=== PATIENT | female | born 1955 | race Caucasian/White ===

== ENCOUNTER → 2019-04-04 09:34 | Outpatient (CLI) | payer OTHER, SELFPAY ==
--- NOTE | 2019-04-04 09:43 | DI.US.S_ITS ---
PROCEDURE: US ABD AORTA ANEURYSM SCREEN INDICATIONS: ENCOUNTER FOR SCREENING FOR CARDIOVASCULAR DISORDERS TECHNIQUE: Real time scanning was performed of the aorta and iliac arteries, with image documentation. COMPARISON: None. FINDINGS: Aorta: Proximal aortic diameter measures 2.5 cm. Mid-aorta measures 2.0 cm. Distal aortic diameter is 1.7 cm. Iliac arteries: Right common iliac artery measures 1.2 cm. Left common iliac artery measures 1.3 cm. IMPRESSION: No abdominal aortic or proximal common iliac artery aneurysm. Dictated by: Adrian HAYWOOD Interpreted: Dee Dee Cisneros MD on 04/04/2019 at 12:12 Approved by: Dee Dee Cisneros M.D. on 04/04/2019 at 14:10
--- NOTE | 2019-04-04 09:44 | DI.MG.S_ITS ---
BILATERAL DIGITAL SCREENING MAMMOGRAM 3D/2D WITH CAD: 04/04/2019 CLINICAL: Routine screening. Comparison is made to exams dated: 05/26/2017 mammogram, 06/02/2014 mammogram, and 02/22/2012 mammogram - [facility]. The tissue of both breasts is heterogeneously dense. This may lower the sensitivity of mammography. Current study was also evaluated with a Computer Aided Detection (CAD) system. There is a benign biopsy clip in the right breast. No significant masses, calcifications, or other findings are seen in either breast. There has been no significant interval change. IMPRESSION: NEGATIVE There is no mammographic evidence of malignancy. A 1 year screening mammogram is recommended. This exam was interpreted at Station ID: [id number]. NOTE: For mammograms, a report in lay terms will be sent to the patient. Approximately 15% of breast malignancies will not be visualized mammographically. In the management of a palpable breast mass, a negative mammogram must not discourage biopsy of a clinically suspicious lesion. Electronically Signed By: David martinez/marya:04/05/2019 17:33:05 letter sent: Normal Exam ACR BI-RADS Category 1: Negative 3341F
== END ==
PROVIDERS: PCP Nurse Practitioner Family; Visit Provider Nurse Practitioner Family
DX: Z12.31 Encounter for screening mammogram for malignant neoplasm of breast (principal); Z13.6 Encounter for screening for cardiovascular disorders
CPT/HCPCS: 76706; 77063; 77067

== ENCOUNTER → 2019-09-06 10:16 | Outpatient (CLI) | payer OTHER, SELFPAY ==
--- NOTE | 2019-09-06 10:24 | DI.CT.S_ITS ---
PROCEDURE: CT ABDOMEN PELVIS WO CON INDICATIONS: Right lower quadrant pain TECHNIQUE: After the administration of oral contrast, 5 mm thick sections acquired from the diaphragms to the symphysis. 5 mm coronal and sagittal reformats were performed. For radiation dose reduction, the following was used: automated exposure control, adjustment of mA and/or kV according to patient size. COMPARISON: [facility], CT, ABDOMEN/PELVIS WITH CONTRAST, 08/29/2008, 14:25. FINDINGS: Image quality: Excellent. ABDOMEN: Lung bases: Lung bases are clear. Heart size is normal. Solid organs: Hypodense lesion measuring 1.5 cm on image 13 series 2 is technically indeterminate, although grossly unchanged since 2007 Gallbladder surgically absent. Pancreas is normal in size. Spleen is normal in size. No adrenal nodules. Both kidneys are normal in size, without hydronephrosis or nephrolithiasis. Peritoneum and bowel: Bowel loops demonstrate normal wall thickness and caliber. No free fluid or air. Appendix is not clearly identified however no suspicious pericecal inflammatory changes are seen. Nodes and vessels: No retroperitoneal or mesenteric adenopathy by size criteria. Aorta and inferior vena cava are normal in size. Miscellaneous: No ventral hernias. PELVIS: Genitourinary: Bladder wall thickness is normal. Miscellaneous: No inguinal hernias or adenopathy. Bones: No suspicious bony lesions. No vertebral body compression fractures. Unchanged 1 cm focus of sclerosis in the L3 vertebral body IMPRESSION: Appendix is not clearly identified however no suspicious pericecal inflammatory changes are seen. Status post cholecystectomy No specific visualized etiology for right lower quadrant pain. Dictated by: Tha Villafuerte M.D. on 09/06/2019 at 13:15 Approved by: Tha Villafuerte M.D. on 09/06/2019 at 13:22
== END ==
PROVIDERS: PCP Nurse Practitioner Family; Visit Provider Nurse Practitioner Family
DX: R10.31 Right lower quadrant pain (principal); Z90.49 Acquired absence of other specified parts of digestive tract
CPT/HCPCS: 74176

== ENCOUNTER → 2020-10-12 11:38 | Outpatient (CLI) | payer OTHER, SELFPAY ==
--- NOTE | 2020-10-12 | DI.MG.S_ITS ---
BILATERAL DIGITAL SCREENING MAMMOGRAM 3D/2D WITH CAD: 10/12/2020 CLINICAL: Routine screening. Comparison is made to exams dated: 04/04/2019 mammogram and 05/26/2017 mammogram - [facility]. The tissue of both breasts is heterogeneously dense. This may lower the sensitivity of mammography. Current study was also evaluated with a Computer Aided Detection (CAD) system. There is a biopsy clip in the right breast. No significant masses, calcifications, or other findings are seen in either breast. There has been no significant interval change. IMPRESSION: NEGATIVE There is no mammographic evidence of malignancy. A 1 year screening mammogram is recommended. This exam was interpreted at Station ID: [id number]. NOTE: For mammograms, a report in lay terms will be sent to the patient. Approximately 15% of breast malignancies will not be visualized mammographically. In the management of a palpable breast mass, a negative mammogram must not discourage biopsy of a clinically suspicious lesion. Electronically Signed By: Sylvester pfeiffer/marya:10/12/2020 17:32:31 copy to: HUY BRANTLEY letter sent: Normal Exam ACR BI-RADS Category 1: Negative 3341F
== END ==
PROVIDERS: PCP Nurse Practitioner Family; Referring Provider Nurse Practitioner Family; Visit Provider Nurse Practitioner Family
DX: Z12.31 Encounter for screening mammogram for malignant neoplasm of breast (principal)
CPT/HCPCS: 77063; 77067

== ENCOUNTER → 2023-07-22 14:05 | Outpatient (CLI) | payer MEDICARE, OTHER, SELFPAY ==
--- NOTE | 2023-07-22 14:14 | DI.MRI.S_ITS ---
PROCEDURE: MR KNEE RT WO CON INDICATIONS: Unspecified internal derangement of right knee TECHNIQUE: Noncontrast sagittal PD fast spin echo and T2 fast spin echo with fat saturation, sagittal 3-D FLASH with fat saturation; coronal T1 spin echo and PD fast spin echo with fat saturation, and axial PD fast spin echo with fat saturation through the knee. COMPARISON: [facility] [place], CR, XR KNEE ARTHRITIC SERIES BI, 12/20/2022, 9:52. FINDINGS: Image quality: Excellent. Anterior Cruciate Ligament: Intact. Posterior Cruciate Ligament: Intact. Medial Collateral Ligament: Intact. Lateral Collateral Ligament: Intact. Medial Meniscus: There is horizontal tearing of the posterior horn of the medial meniscus extending to the free edge margin and likely extending to the tibial articular surface at the meniscal body. Lateral Meniscus: There is complex tearing of the body lateral meniscus with a horizontal oblique component and shallow free edge radial component. Medial and Lateral Tendons: The semimembranosus tendon insertions and meniscocapsular junction appear intact. Visualized portions of the pes anserinus tendons appear normal. No abnormal bursal fluid. The long and short heads of the biceps femoris tendon appear intact. The popliteus tendon appears intact. No signs of posterolateral corner injury. Iliotibial band appears normal. Anterior Structures: The quadriceps and patellar tendons appear intact. Minimal lateral patellar subluxation. No femoral trochlear dysplasia or ventral trochlear prominence. Mild edema is seen at the superolateral aspect of the infrapatellar fat pad, which can be seen in the setting of lateral femoral condyle-patellar tendon friction syndrome. Bones: No acute trabecular bone injury or fracture. Medial Femorotibial Cartilage: There is high-grade versus full-thickness cartilage loss in the weight-bearing portion of the medial femorotibial compartment with subchondral cystic changes and edema and marginal osteophyte formation. Lateral Femorotibial Cartilage: Focal grade 3 chondromalacia is seen in the central weight-bearing portion of the lateral femorotibial compartment. Small marginal osteophytes are present. Patellofemoral Cartilage: Full-thickness cartilage loss is seen at the lateral patellar facet and adjacent lateral femoral trochlea with mild subchondral edema. Grade 3 chondromalacia is seen at the medial femoral trochlea and trochlear groove and there is deep cartilage fissuring in the medial patellar facet. Soft Tissues: A small joint effusion is present. Small medial popliteal cyst. The musculature surrounding the knee is normal in bulk. IMPRESSION: 1. 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 Grade 3-4 chondromalacia is seen in the medial compartment and there is focal grade 3 chondromalacia in the lateral compartment. Tricompartmental marginal osteophytes are present. 2. Complex tearing of the lateral meniscus with a horizontal component at the meniscal body and superimposed shallow free edge radial component. 3. Horizontal tearing of the medial meniscus extending to the free edge margin at the posterior horn and likely the tibial articular surface at the meniscal body. 4. Cruciate and collateral ligaments are intact. No acute trabecular bone injury. 5. Mild edema is seen at the superolateral aspect of the infrapatellar fat pad, which can be seen in the setting of lateral femoral condyle-patellar tendon friction syndrome. 6. Small joint effusion. Small medial popliteal cyst. Approved by: Sylvester Pat M.D. on 07/24/2023 at 10:49
== END ==
PROVIDERS: PCP Nurse Practitioner Family; Referring Provider Orthopaedic Surgery Foot and Ankle Surgery; Visit Provider Orthopaedic Surgery Foot and Ankle Surgery
DX: M23.91 Unspecified internal derangement of right knee (principal); M17.0 Bilateral primary osteoarthritis of knee; M22.41 Chondromalacia patellae, right knee; M25.761 Osteophyte, right knee; S83.281A Other tear of lateral meniscus, current injury, right knee, initial encounter; S83.241A Other tear of medial meniscus, current injury, right knee, initial encounter; M25.461 Effusion, right knee; M71.21 Synovial cyst of popliteal space [Baker], right knee
CPT/HCPCS: 73721

== ENCOUNTER → 2023-08-16 14:32 | Outpatient (CLI) | payer MEDICARE, OTHER, SELFPAY ==
--- NOTE | 2023-08-16 | DI.MG.S_ITS ---
BILATERAL DIGITAL SCREENING MAMMOGRAM 3D/2D WITH CAD: 08/16/2023 CLINICAL: Routine screening. Comparison is made to exams dated: 10/12/2020 mammogram, 04/04/2019 mammogram, 05/26/2017 mammogram, and 02/29/2012 mammogram - [facility]. Both breasts are heterogeneously dense, which may obscure small masses (category c / 51-75% glandular tissue). Current study was also evaluated with a Computer Aided Detection (CAD) system. There is a biopsy clip in the right breast. No significant masses, calcifications, or other findings are seen in either breast. There has been no significant interval change. IMPRESSION: NEGATIVE There is no mammographic evidence of malignancy. A 1 year screening mammogram is recommended. Based on the Tyrer Cuzick model (a risk assessment model) the patient's lifetime risk is 7.0% and her 10 year risk is 4.4%. According to the ACR, ACS, and NCCN guidelines, an annual breast MRI exam along with mammogram is recommended if the patient's lifetime risk is 20% or greater. This exam was interpreted at Station ID: [id number]. NOTE: For mammograms, a report in lay terms will be sent to the patient. Approximately 15% of breast malignancies will not be visualized mammographically. In the management of a palpable breast mass, a negative mammogram must not discourage biopsy of a clinically suspicious lesion. Electronically Signed By: Tommy patel/marya:08/17/2023 13:04:52 copy to: HUY BRANTLEY letter sent: Normal Exam ACR BI-RADS Category 1: Negative 3341F
== END ==
PROVIDERS: PCP Family Medicine; Referring Provider Family Medicine; Visit Provider Family Medicine
DX: Z12.31 Encounter for screening mammogram for malignant neoplasm of breast (principal)
CPT/HCPCS: 77063; 77067

== ENCOUNTER 2024-06-02 12:05 | Emergency (ER) | payer MEDICARE, OTHER, SELFPAY ==
[2024-06-02 12:29] VITALS: BP 119/72; PULSE 83; RESP 16; TEMP 36.8; O2SAT 96; BMI 27.2
[2024-06-02 14:08] LABS: Adenovirus Not Detected (Not Detect); B. parapertussis Not Detected (Not Detecte); Bordetella pertussis Not Detected (Not Detect); Chlamydophila pneumoniae Not Detected (Not Detect); Coronavirus 229E Not Detected (Not Detect); Coronavirus HKU1 Not Detected (Not Detect); Coronavirus NL 63 Not Detected (Not Detect); Coronavirus OC43 Not Detected (Not Detect); Human Metapneumovirus Not Detected (Not Detect); Human Rhinovirus/Enterovirus Not Detected (Not Detect); Influenza A Not Detected (Not Detect); Influenza B Not Detected (Not Detect); Mycoplasma pneumoniae Not Detected (Not Detect); Parainfluenza Virus 1 Not Detected (Not Detect); Parainfluenza Virus 2 Not Detected (Not Detect); Parainfluenza Virus 3 Not Detected (Not Detect); Parainfluenza Virus 4 Not Detected (Not Detect); Respiratory Syncytial Virus Not Detected (Not Detect); SARS- CoV-2 Not Detected (Not Detecte)
[2024-06-02 14:38] VITALS: PULSE 76; O2SAT 97
[2024-06-02 14:39] VITALS: BP 114/61; PULSE 78; O2SAT 97
[2024-06-02 15:00] VITALS: BP 118/67; PULSE 73; O2SAT 94
[2024-06-02 15:30] VITALS: BP 124/68; PULSE 78; O2SAT 95
--- NOTE | 2024-06-02 15:48 | PC.NURSE ---
Pt walked out of room tearful and upset asking ED pediatric social worker when she is going to be seen by the Doctor, RN explained to pt she will be seen in the order of acuity of the emergency department. Pt then walked back to her room upset, slamming her room door shut. RN followed pt to room and asked her to please not slam the door. Pt agreeable. Will monitor pt for escalation in behavior.
--- NOTE | 2024-06-02 15:55 | ED_ITS ---
HPI - Ear Problem General Chief complaint: Ear Stated complaint: L Eye Issue, Poss R Ear Perforation Time Seen by Provider: 06/02/24 15:50 Source: patient Mode of arrival: Ambulatory History of Present Illness HPI Narrative: 68-year-old female complains of right ear pain, now day 2 of amoxicillin oral antibiotic, with discharge from the left eye, concerned about left eye infection, she wiped it clean with a wet cloth, now seems improved, is interested in some kind of topical antibiotic for her left eye. No injury recalled. No change in vision. She has been taking her amoxicillin doses. She feels that she has had some leakage/drainage from the right ear. She denies instrumentation of her ears. Related Data Previous Rx's Medication Instructions Recorded sumatriptan succinate 100 mg 100 mg PO PRN #9 tabs 05/09/16 tablet (Imitrex) ezetimibe 10 mg tablet (Zetia) 0 PO Q DAY #90 tabs 05/01/17 pravastatin 40 mg tablet 40 mg PO HS #90 tabs 05/01/17 (Pravachol) erythromycin 5 mg/gram (0.5 %) eye 1 applic EYE-LEFT TID eye 06/02/24 ointment infection 7 days #3.5 grams Allergies Allergy/AdvReac Type Severity Reaction Status Date / Time naproxen [NAPROXEN] AdvReac Mild Dizziness Unverified 01/24/18 13:07 hydrocodone [HYDROCODONE] AdvReac Unknown N&V, Unverified 01/24/18 13:07 constipation Review of Systems Review of Systems Narrative: see HPI Patient History Social History Smoking Status: Never smoker Smoking Status: Never smoker alcohol intake frequency: holidays/special occasions only Substance Use Type: does not use Exam Narrative Exam Narrative: GENERAL: Well-developed patient, in mild distress. HEAD: Atraumatic. Normocephalic. EYES: Pupils equal round and reactive. Extraocular motions intact. No scleral icterus. No injection or drainage. ENT: Nose without bleeding, purulent drainage. Throat without erythema, tonsillar hypertrophy or exudate. Airway patent. Right symptomatic TM does have some inferior bulge and dullness, and loss of landmarks, consistent with recent reported middle ear infection. The ear canal does not appear to be narrowed, there is no purulence or foreign body noted in the ear canal. She does not seem to have scleral injection nor any discharge to either eye NECK: Trachea midline. Non tender CARDIOVASCULAR: Regular rate and rhythm without murmurs, gallops, or rubs. RESPIRATORY: Clear to auscultation. Breath sounds equal bilaterally. No wheezes, rales, or rhonchi. GASTROINTESTINAL: Abdomen soft, non-tender, nondistended. EXTREMITIES: No edema or joint tenderness. BACK: Nontender without deformity or crepitance. No flank tenderness. NEURO: AOx3. SKIN: No rash or erythema of visible areas Initial Vital Signs Initial Vital Signs: Vital Signs Temperature 98.3 F 06/02/24 12:29 Pulse Rate 83 06/02/24 12:29 Respiratory Rate 16 06/02/24 12:29 Blood Pressure 119/72 06/02/24 12:29 Pulse Oximetry 96 06/02/24 12:29 Oxygen Delivery Method Room Air 06/02/24 12:29 Course Orders Ordered: ED Orders 06/02/24 12:40 Respiratory Panel (Film Array) Stat Vital Signs Vital signs: Vital Signs - 8 hr 06/02/24 12:29 06/02/24 14:38 06/02/24 14:39 Temperature 98.3 F Pulse Rate 83 76 78 Respiratory Rate 16 Blood Pressure 119/72 Pulse Oximetry 96 97 97 Oxygen Delivery Method Room Air 06/02/24 14:39 06/02/24 15:00 06/02/24 15:00 Temperature Pulse Rate 73 Respiratory Rate Blood Pressure 114/61 118/67 Pulse Oximetry 94 Oxygen Delivery Method 06/02/24 15:30 06/02/24 15:30 Temperature Pulse Rate 78 Respiratory Rate Blood Pressure 124/68 Pulse Oximetry 95 Oxygen Delivery Method Medical Decision Making Lab Data Labs: Lab Results 06/02/24 Range/Units 12:40 Chlamy pneumoniae PCR Not detected (Not Detect) Adenovirus (PCR) Not detected (Not Detect) B.parapertussis DNA PCR Not detected (Not Detecte) Coronavirus OC43 (PCR) Not detected (Not Detect) Coronavirus HKU1 (PCR) Not detected (Not Detect) Coronavirus 229E (PCR) Not detected (Not Detect) SARS-CoV-2 (PCR) Not detected (Not Detecte) Coronavirus NL63 (PCR) Not detected (Not Detect) Human Metapneumovir PCR Not detected (Not Detect) Influenza Type A (PCR) Not detected (Not Detect) Influenza Type B (PCR) Not detected (Not Detect) M. pneumoniae (PCR) Not detected (Not Detect) Parainfluenza 1 (PCR) Not detected (Not Detect) Parainfluenza 2 (PCR) Not detected (Not Detect) Parainfluenza 3 (PCR) Not detected (Not Detect) Parainfluenza 4 (PCR) Not detected (Not Detect) RSV (PCR) Not detected (Not Detect) Entero/Rhino (PCR) Not detected (Not Detect) MDM Narrative Medical decision making narrative: Recent ear pain, day 2 of oral amoxicillin, with discharge complaints from left eye by report, not evident on exam, apparently she would just cleaned it. She is requesting antibiotics topically for the left eye, no allergies, we will send prescription for erythromycin antibiotic to her [place] pharmacy. She wants to leave now to catch [employer]. Consider refractory otitis media due to amoxicillin, however she is only on day 2, advised continued amoxicillin antibiotic coverage, if symptoms persist by day 4 or 5 a change in antibiotic might be reasonable, still little bit too early to do this. She seemed agreeable to this plan. We will send erythromycin ophthalmic antibiotic prescription to her [place] pharmacy. Discharge Plan Departure Patient Disposition: Home Clinical Impression: Otitis media, Conjunctivitis Activity Restrictions/Additional Instructions: Right-sided ear pain, day 2 of oral antibiotic amoxicillin, some drainage symptoms, however on exam there does seem to be middle ear infection like changes to the eardrum, does not appear to be perforated, there did not seem to be any debris or foreign body or fluid in the ear canal. It is a bit too early to consider changing antibiotics, continue same amoxicillin for now, if symptoms persisting and exam unchanged at day 4-5 then sometimes it change in antibiotic classes warranted. You had complaint of drainage from your left eye, but cleaned it prior to arrival. Unremarkable external eye exams. You wanted to have antibiotic ointment to use your left eye, no known drug allergies, erythromycin ointment electronically prescribed, sent to your [place] pharmacy to merchandise pickup/receiving associate tomorrow and open. Recheck your right ear if not improving in clinic in the next 2-3 days. Return earlier to this/nearest emergency department for any change worsening symptoms or any concerns prior Prescriptions: New erythromycin 5 mg/gram (0.5 %) ointment 1 applic EYE-LEFT TID 7 Days Qty: 3.5 0RF No Action sumatriptan succinate [Imitrex] 100 MG tablet 100 mg PO PRN Qty: 9 2RF pravastatin [Pravachol] 40 MG tablet 40 mg PO HS Qty: 90 0RF ezetimibe [Zetia] 10 MG tablet 0 PO Q DAY Qty: 90 1RF Referrals: Rachele Delgadillo MD [Primary Care Provider] - Stand Alone Forms: Patient Portal/API
--- NOTE | 2024-06-02 16:04 | PC.NURSE ---
natural gas technician states that the pt had removed her BP cuff and SpO2 when she entered the room. New vitals obtained.
== END 2024-06-02 16:05 | disposition home or self-care (01) ==
PROVIDERS: Emergency Provider Emergency Medicine; PCP Family Medicine
DX: H66.91 Otitis media, unspecified, right ear (principal); H10.9 Unspecified conjunctivitis
CPT/HCPCS: 87633; 99282

== ENCOUNTER → 2025-02-24 11:46 | Outpatient (CLI) | payer MEDICARE, OTHER, SELFPAY ==
--- NOTE | 2025-02-24 11:49 | DI.MG.S_ITS ---
MM screening mammo BI: 02/24/2025. BI-RADS: 2 CLINICAL: 69-year old female for bilateral screening mammogram. Tyrer-Cuzick lifetime risk of 5.7%. No personal or first-degree family history of breast cancer. PRIOR EXAMS 08/16/2023, 10/12/2020, 04/04/2019, 05/26/2017. MAMMOGRAPHY TECHNIQUE: 2D and 3D (tomosynthesis) digital mammographic views obtained, with additional images as needed for full coverage. Current study was also evaluated with a Computer Aided Detection (CAD) system. DENSITY C. The breasts are heterogeneously dense, which may obscure small masses. MAMMOGRAPHY FINDINGS Right: Biopsy marker present on the right. Benign-appearing post-surgical changes noted on the right. There are no suspicious masses, calcifications, or other findings in the breast. Left: No suspicious mass, asymmetry, microcalcification, or other abnormality seen. IMPRESSION: Right * No evidence of malignancy with benign findings. Left * No evidence of malignancy. RECOMMENDATIONS Bilateral * Annual screening mammography. OVERALL ASSESSMENT CATEGORY BI-RADS-2: Benign. The [employer] recommends annual screening mammography beginning at age 40 for women with average risk of breast cancer. ELECTRONICALLY SIGNED: Tommy Teresa M.D. on 02/24/2025 at 03:45:28 PM PT Interpreting Station ID: [id number]
== END ==
LOC: MAMMO 11:47
PROVIDERS: PCP Family Medicine; Referring Provider Family Medicine; Visit Provider Family Medicine
DX: Z12.31 Encounter for screening mammogram for malignant neoplasm of breast (principal); R92.333 Mammographic heterogeneous density, bilateral breasts
CPT/HCPCS: 77063; 77067

== ENCOUNTER → 2025-07-14 08:01 | Outpatient (CLI) | payer MEDICARE, OTHER, SELFPAY ==
--- NOTE | 2025-07-14 08:04 | DI.US.S_ITS ---
PROCEDURE: US PELVIC COMPLETE INDICATIONS: PMB TECHNIQUE: Real-time scanning was performed of the pelvic organs, with image documentation. Additional endovaginal scanning was necessary due to incomplete visualization of the adnexal and endometrial structures by transabdominal scanning. COMPARISON: None. FINDINGS: Uterus: Uterus is anteverted and normal in size at 8.0 x 6.1 x 6.0 cm. The myometrium is heterogeneous. The endometrium is hypervascular and measures 15 mm combined thickness. Predominantly subserosal uterine fibroid is present at the posterior body measuring 2.7 x 2.9 x 3.2 cm. An additional hypoechoic intramural fibroid is present at the posterior uterine body/fundus measuring 1.1 x 0.8 cm. Ovaries: The right ovary measures is not visualized. The left ovary measures 1.9 x 2.6 x 1.1 cm. The ovaries have a normal sonographic appearance. There is a 1.1 cm cyst seen in the left ovary. No adnexal masses are seen. Other: No pathologic free abdominal or pelvic fluid. IMPRESSION: 1. Thickened, hypervascularendometrium measuring 15 mm which is abnormal in a post-menopausal patient. Recommend gynecologic consultation. 2. Uterine fibroids. We strive to produce accurate, complete, and clear reports of imaging services. To assist us in improving patient care, this report was composed using standard report templates and voice recognition software. Therefore, it may contain abnormal punctuation, insertions and/or omissions. Occasional wrong-word or sound-alike substitutions may occur. Though we review the report and make efforts to correct it, we do recommend that the report be read carefully in proper context to recognize any text inaccuracies. Dictated by: Edmundo Stein M.D. on 07/14/2025 at 17:05 Approved by: Edmundo Stein M.D. on 07/14/2025 at 17:15
== END ==
PROVIDERS: Visit Provider Nurse Practitioner
DX: N95.0 Postmenopausal bleeding (principal); D25.1 Intramural leiomyoma of uterus; D25.2 Subserosal leiomyoma of uterus; N83.202 Unspecified ovarian cyst, left side; R93.89 Abnormal findings on diagnostic imaging of other specified body structures
CPT/HCPCS: 76830; 76856

== ENCOUNTER 2025-09-11 07:28 | Emergency (ER) | payer MEDICARE, OTHER, SELFPAY ==
[2025-09-11] VITALS (11 sets, daily range): BP systolic 129–156; BP diastolic 71–78; PULSE 60–76; RESP 16–18; TEMP 36.7; O2SAT 93–97; BMI 26.8
--- NOTE | 2025-09-11 07:58 | DI.RAD.S_ITS ---
PROCEDURE: XR CHEST 1V INDICATIONS: chest pain TECHNIQUE: One view of the chest was acquired. COMPARISON: None. FINDINGS: Surgical changes and devices: None. Lungs and pleura: Lungs are clear. No pleural effusions or pneumothorax. Mediastinum: Mediastinal contours appear normal. Heart size is normal. Bones and chest wall: No suspicious bony lesions. Overlying soft tissues appear unremarkable. IMPRESSION: No acute cardiopulmonary abnormality is seen. Dictated by: Darian Gordillo M.D. on 09/11/2025 at 8:30 Approved by: Darian Gordillo M.D. on 09/11/2025 at 8:30
--- NOTE | 2025-09-11 08:04 | ED.SOB ---
HPI - SOB/Dyspnea General Chief Complaint: Shortness of Breath/Dyspnea Stated Complaint: SOB Time Seen by Provider: 09/11/25 07:48 Source: patient Mode of arrival: Ambulatory Limitations: no limitations History of Present Illness HPI Narrative: Patient is a 70-year-old female brought in by EMS for chest tightness, dyspnea, lightheadedness. Past medical history significant for hyperlipidemia (ezetimibe, pravastatin), hypertension (2.5mg lisinopril), and recent gynecological procedure 2 days ago (D&C). Patient states that she was in her usual state of health and had a D&C 2 days ago that was without complication and resulted in a polyp removal. She was hospitalized and discharged the following day and stated that she has been ambulatory since. She was in her usual state of health with history and stated upon waking up today she felt short of breath, and had associated lightheadedness, and anterior nonradiating chest tightness. She denies any diaphoresis, or nausea. No loss of consciousness or syncopal episodes. No fevers, chills, no history of hypercoagulability. Related Data Previous Rx's ?Medication ?Instructions ?Recorded sumatriptan succinate 100 mg 100 mg PO PRN #9 tabs 05/09/16 tablet (Imitrex) ezetimibe 10 mg tablet (Zetia) 0 PO Q DAY #90 tabs 05/01/17 pravastatin 40 mg tablet 40 mg PO HS #90 tabs 05/01/17 (Pravachol) Allergies Allergy/AdvReac Type Severity Reaction Status Date / Time naproxen (NAPROXEN) AdvReac Mild Dizziness Verified 09/11/25 07:50 hydrocodone (HYDROCODONE) AdvReac Unknown N&V, Verified 09/11/25 07:50 constipation Review of Systems Review of Systems Narrative: See HPI above. Patient History Social History Smoking Status: Never smoker Smoking Status: Never smoker alcohol intake frequency: holidays/special occasions only Exam Initial Vital Signs Initial Vital Signs: Vital Signs Temperature 98.1 F 09/11/25 07:50 Pulse Rate 64 09/11/25 07:50 Respiratory Rate 18 09/11/25 07:50 Blood Pressure 156/71 H 09/11/25 07:50 Pulse Oximetry 96 09/11/25 07:50 Oxygen Delivery Method Room Air 09/11/25 07:50 Scores HEART Score Heart Score history: Slightly Suspicious (Dyspnea, chest tightness, lightheadedness, no associated diaphoresis, nausea, vomiting.) Heart Score Age: > or = 65 years old (70 years old) Heart Score risk factors: 1-2 risk factors Wells' Criteria for PE Citation:: 1.5?points Low risk group: 1.3% chance of PE in an ED population. Another study assigned scores <= as ?PE Unlikely? and had a 3% incidence of PE. Course Course Course Narrative: 0810 reviewed EMR patient was previously on hormone replacement therapy however confirmed with patient was informed that she was on HRT 20 years ago and not currently on any hormone treatment. 0817 EKG with normal sinus rhythm, heart rate 59 AR 220 QRS 78 QTC 392 no axis deviation sinus bradycardia with first-degree block and low voltage criteria. Orders Ordered: ED Orders 09/11/25 07:58 CXR [XR chest 1V] Stat CBC Auto Diff [Complete Blood Count AUTO DIFF] Stat CMP [Comprehensive Metabolic Panel] Stat D Dimer Stat Troponin I Stat 09/11/25 08:03 EKG-12 Lead Stat Vital Signs Vital signs: Vital Signs - 8 hr 09/11/25 07:50 Temperature 98.1 F Pulse Rate 64 Respiratory Rate 18 Blood Pressure 156/71 H Pulse Oximetry 96 Oxygen Delivery Method Room Air MDM - SOB/Dyspnea Lab Data 09/11/25 08:10 09/11/25 08:10 Labs: Lab Results 09/11/25 Range/Units 08:10 WBC 8.8 (4.5-11.0) X10^3/uL RBC 4.27 (4.0-5.2) X10^6/uL Hgb 12.7 (12.0-16.0) g/dL Hct 37.9 (36-46) % MCV 88.7 (80-100) fL MCH 29.6 (26-34) PG MCHC 33.4 (30-36) % RDW 14.1 (11.6-14.8) % Plt Count 218 (150-400) X10^3/uL Neut % (Auto) 55.2 (50-75) % Lymph % (Auto) 36.5 (25-40) % [place] % (Auto) 6.1 (3-14) % Eos % (Auto) 1.7 L (2-4) % Baso % (Auto) 0.5 (0-2) % Neut # (Auto) 4800 (6794-4988) /uL Lymph # (Auto) 3200 (6976-4858) /uL [place] # (Auto) 500 (0-900) /uL Eos # (Auto) 100 (0-450) /uL Baso # (Auto) 0 (0-100) /uL Sodium 142 (137-145) mmol/L Potassium 4.6 (3.4-5.1) mmol/L Chloride 109 H (98-107) mmol/L Carbon Dioxide 25 (22-32) mmol/L BUN 19 H (7-17) mg/dL Creatinine 0.91 (0.52-1.04) mg/dL Estimated GFR > 60 (>60) mL/min BUN/Creatinine Ratio 20.9 (6-22) Glucose 92 (70-99) mg/dL Calcium 9.6 (8.4-10.2) mg/dL Total Bilirubin 0.2 (0.2-1.3) mg/dL AST 33 (14-36) IU/L ALT 33 (<35) IU/L Alkaline Phosphatase 70 (38-126) U/L Total Protein 7.1 (6.3-8.2) g/dL Albumin 4.5 (3.5-5.0) g/dL Globulin 2.6 (1.7-4.1) g/dL Albumin/Globulin Ratio 1.7 (1.0-2.8) Imaging Data Chest x-ray: My Impression: Clear lung jiménez with sharp borders around the heart and no evidence of pericardial effusion or blunting of the costophrenic angle. No evidence of pneumothorax or consolidation, bony structures appear normal. Radiologist's Impression: FINDINGS: Surgical changes and devices: None. Lungs and pleura: Lungs are clear. No pleural effusions or pneumothorax. Mediastinum: Mediastinal contours appear normal. Heart size is normal. Bones and chest wall: No suspicious bony lesions. Overlying soft tissues appear unremarkable. IMPRESSION: No acute cardiopulmonary abnormality is seen. Discharge Plan Departure Prescriptions: No Action sumatriptan succinate [Imitrex] 100 MG tablet 100 mg PO PRN Qty: 9 2RF pravastatin [Pravachol] 40 MG tablet 40 mg PO HS Qty: 90 0RF ezetimibe [Zetia] 10 MG tablet 0 PO Q DAY Qty: 90 1RF Referrals: Miscellaneous,Doctor, [Primary Care Provider, Medical]
--- NOTE | 2025-09-11 08:17 | EKG_ITS ---
[address] [address] Test Date: 2025-09-11 Pat Name: Evelia Collier Department: [facility] Room: Gender: Female Real Time Operator: LALA : 1955 Requested By: Order Number: [id number] Reading MD: Prasad Carvajal Measurements Intervals [place] Rate: 59 P: 57 [place]: 220 QRS: 27 QRSD: 78 T: 33 QT: 396 QTc: 392 Interpretive Statements Sinus bradycardia with 1st degree AV block Electronically Signed On 09-11-2025 17:27:04 PST by Prasad Carvajal
[2025-09-11 08:19] LABS: Add Manual Diff / Slide Review NO; Hematocrit 37.9 % (36-46); Hemoglobin 12.7 g/dL (12.0-16.0); Lymphocytes Absolute Auto 3200 /uL (1100-4500); Mean Corpuscular HGB Conc 33.4 % (30-36); Mean Corpuscular Hemoglobin 29.6 PG (26-34); Mean Corpuscular Volume 88.7 fL (80-100); Platelet Count 218 X10^3/uL (150-400)
[2025-09-11 08:37] LABS: Alanine Aminotransferase 33 IU/L (<35); Albumin 4.5 g/dL (3.5-5.0); Albumin Globulin Ratio 1.7 (1.0-2.8); Alkaline Phosphatase 70 U/L (38-126); Blood Urea Nitrogen 19 mg/dL (7-17); Calcium 9.6 mg/dL (8.4-10.2); Carbon Dioxide 25 mmol/L (22-32); Chloride 109 mmol/L (98-107); Estimated Glomerular Filt Rate > 60 mL/min (>60); Globulin 2.6 g/dL (1.7-4.1); Glucose 92 mg/dL (70-99); HEMOLYSIS < 15 (0-50); Potassium 4.6 mmol/L (3.4-5.1); Sodium 142 mmol/L (137-145); Total Protein 7.1 g/dL (6.3-8.2)
--- NOTE | 2025-09-11 08:38 | ED.SOB ---
HPI - SOB/Dyspnea General Chief Complaint: Shortness of Breath/Dyspnea Stated Complaint: SOB Time Seen by Provider: 09/11/25 07:48 Source: patient Mode of arrival: Ambulatory Limitations: no limitations Related Data Previous Rx's ?Medication ?Instructions ?Recorded sumatriptan succinate 100 mg 100 mg PO PRN #9 tabs 05/09/16 tablet (Imitrex) ezetimibe 10 mg tablet (Zetia) 0 PO Q DAY #90 tabs 05/01/17 pravastatin 40 mg tablet 40 mg PO HS #90 tabs 05/01/17 (Pravachol) Allergies Allergy/AdvReac Type Severity Reaction Status Date / Time naproxen (NAPROXEN) AdvReac Mild Dizziness Verified 09/11/25 07:50 hydrocodone (HYDROCODONE) AdvReac Unknown N&V, Verified 09/11/25 07:50 constipation Patient History Social History Smoking Status: Never smoker Smoking Status: Never smoker alcohol intake frequency: holidays/special occasions only Exam Initial Vital Signs Initial Vital Signs: Vital Signs Pulse Rate 76 09/11/25 07:45 Pulse Oximetry 94 09/11/25 07:45 Course Course Course Narrative: 1135 Dr. Dias 1140 Updated patient Orders Ordered: ED Orders 09/11/25 07:58 CXR [XR chest 1V] Stat 09/11/25 08:03 EKG-12 Lead Stat 09/11/25 08:10 CBC Auto Diff [Complete Blood Count AUTO DIFF] Stat CMP [Comprehensive Metabolic Panel] Stat D Dimer Stat Troponin I Stat 09/11/25 09:39 CT angio chest PE protocol Stat 09/11/25 10:06 Troponin I Stat Vital Signs Vital signs: Vital Signs - 8 hr 09/11/25 07:45 09/11/25 07:46 09/11/25 07:46 Temperature Pulse Rate 76 76 Respiratory Rate Blood Pressure 156/71 H Pulse Oximetry 94 95 Oxygen Delivery Method 09/11/25 07:50 09/11/25 08:00 09/11/25 08:00 Temperature 98.1 F Pulse Rate 64 66 Respiratory Rate 18 Blood Pressure 156/71 H 140/76 Pulse Oximetry 96 95 Oxygen Delivery Method Room Air 09/11/25 08:30 09/11/25 09:00 09/11/25 09:30 Temperature Pulse Rate 65 63 60 Respiratory Rate Blood Pressure Pulse Oximetry 94 94 94 Oxygen Delivery Method 09/11/25 10:01 09/11/25 10:06 09/11/25 10:06 Temperature Pulse Rate 65 63 Respiratory Rate Blood Pressure 150/78 H Pulse Oximetry 97 97 Oxygen Delivery Method 09/11/25 10:30 09/11/25 10:30 Temperature Pulse Rate 64 Respiratory Rate Blood Pressure 129/73 Pulse Oximetry 93 Oxygen Delivery Method MDM - SOB/Dyspnea Lab Data 09/11/25 08:10 09/11/25 08:10 Labs: Lab Results 09/11/25 09/11/25 Range/Units 08:10 10:06 WBC 8.8 (4.5-11.0) X10^3/uL RBC 4.27 (4.0-5.2) X10^6/uL Hgb 12.7 (12.0-16.0) g/dL Hct 37.9 (36-46) % MCV 88.7 (80-100) fL MCH 29.6 (26-34) PG MCHC 33.4 (30-36) % RDW 14.1 (11.6-14.8) % Plt Count 218 (150-400) X10^3/uL Neut % (Auto) 55.2 (50-75) % Lymph % (Auto) 36.5 (25-40) % [place] % (Auto) 6.1 (3-14) % Eos % (Auto) 1.7 L (2-4) % Baso % (Auto) 0.5 (0-2) % Neut # (Auto) 4800 (2693-9802) /uL Lymph # (Auto) 3200 (4532-0336) /uL [place] # (Auto) 500 (0-900) /uL Eos # (Auto) 100 (0-450) /uL Baso # (Auto) 0 (0-100) /uL D-Dimer 548 H (<500) ng/ml Sodium 142 (137-145) mmol/L Potassium 4.6 (3.4-5.1) mmol/L Chloride 109 H (98-107) mmol/L Carbon Dioxide 25 (22-32) mmol/L BUN 19 H (7-17) mg/dL Creatinine 0.91 (0.52-1.04) mg/dL Estimated GFR > 60 (>60) mL/min BUN/Creatinine Ratio 20.9 (6-22) Glucose 92 (70-99) mg/dL Calcium 9.6 (8.4-10.2) mg/dL Total Bilirubin 0.2 (0.2-1.3) mg/dL AST 33 (14-36) IU/L ALT 33 (<35) IU/L Alkaline Phosphatase 70 (38-126) U/L Troponin I < 0.012 < 0.012 (0.01-0.034) ng/mL Total Protein 7.1 (6.3-8.2) g/dL Albumin 4.5 (3.5-5.0) g/dL Globulin 2.6 (1.7-4.1) g/dL Albumin/Globulin Ratio 1.7 (1.0-2.8) MDM Narrative Medical decision making narrative: 1123 updated patient with current result. Vocal cardiology. Discharge Plan Departure Prescriptions: No Action sumatriptan succinate [Imitrex] 100 MG tablet 100 mg PO PRN Qty: 9 2RF pravastatin [Pravachol] 40 MG tablet 40 mg PO HS Qty: 90 0RF ezetimibe [Zetia] 10 MG tablet 0 PO Q DAY Qty: 90 1RF Referrals: Miscellaneous,Doctor, [Primary Care Provider, Medical]
[2025-09-11 08:48] LABS: Troponin I < 0.012 ng/mL (0.01-0.034)
--- NOTE | 2025-09-11 09:39 | DI.CT.S_ITS ---
PROCEDURE: CT ANGIO CHEST PE PROTOCOL INDICATIONS: dyspnea, diimer 550 TECHNIQUE: After the administration of intravenous contrast, 2 mm thick sections acquired from the pulmonary apices to the posterior costophrenic angles. 3-dimensional maximum intensity projection (MIP) coronal and sagittal reformats were then acquired through the thorax. For radiation dose reduction, the following was used: automated exposure control, adjustment of mA and/or kV according to patient size. COMPARISON: None. FINDINGS: Image quality: Diagnostic. Pulmonary arteries: Pulmonary arteries are normal in size, and demonstrate no intraluminal filling defects to suggest central pulmonary embolism. Lower Neck: No enlarged lymph nodes. Thyroid: No thyroid nodules which require sonographic follow up, per consensus guidelines. Axillae: No enlarged lymph nodes. Chest Wall: Unremarkable. Bones: Unremarkable. Lungs and Pleura: No pneumothorax or pleural effusions. Bibasilar dependent atelectasis. No suspicious consolidation. No suspicious pulmonary nodule. Heart: Heart size is normal. No pericardial effusion. Thoracic Vessels: No aortic aneurysm. Mediastinum and [place]: No enlarged lymph nodes. Esophagus: No wall thickening. No hiatal hernia. Upper Abdomen: Hypodense lesion in segment 2, which measures simple fluid attenuation, likely a cyst IMPRESSION: No pulmonary embolus. No acute cardiopulmonary process. Dictated by: Darian Gordillo M.D. on 09/11/2025 at 10:19 Approved by: Darian Gordillo M.D. on 09/11/2025 at 10:22
[2025-09-11 10:46] LABS: Troponin I < 0.012 ng/mL (0.01-0.034)
== END 2025-09-11 12:23 | disposition home or self-care (01) ==
PROVIDERS: Emergency Provider Student in an Organized Health Care Education/Training Program
DX: R07.89 Other chest pain (principal); R06.00 Dyspnea, unspecified; R42 Dizziness and giddiness; R00.1 Bradycardia, unspecified; I44.0 Atrioventricular block, first degree; I10 Essential (primary) hypertension; E78.5 Hyperlipidemia, unspecified
CPT/HCPCS: 71045; 71275; 80053; 84484; 85025; 85379; 93005; 99281; 99284; Q9967